=== PATIENT | male | born 1945 | race Caucasian/White ===

== ENCOUNTER 2020-06-22 16:44 | Emergency (ER) | payer MEDICARE, SELFPAY ==
[2020-06-22 16:59] VITALS: BP 149/80; PULSE 78; RESP 20; TEMP 36.2; O2SAT 98
--- NOTE | 2020-06-22 17:00 | ED.MALEGU ---
HPI - Male Genitourinary General Chief complaint: Urogenital-Male Stated complaint: cant get cath back in Time Seen by Provider: 06/22/20 17:00 Source: patient Mode of arrival: ambulatory Limitations: no limitations History of Present Illness HPI Narrative: 74-year-old man with a history of BPH comes in today complaining of the inability to cath himself and hematuria. Patient states that he tried to do his usual self-catheterization but he was unable to pass the catheter and he began to have gross blood from his meatus. Patient states that he has had no abdominal pain, fever, urgency, vomiting, diarrhea, testicular pain, cough or cold symptoms, chest pain or shortness of breath. He states he had a similar episode year ago which responded to a Wilson catheter which his physician took about a week later. MD Complaint: other (hematuria) Onset (ago): hour(s) (2-3) Duration: intermittent Location: penis Severity: mild Relieving factors: none Exacerbating factors: none Related Data Allergies Allergy/AdvReac Type Severity Reaction Status Date / Time No Known Allergies Allergy Verified 06/22/20 17:07 Review of Systems Constitutional: Constitutional: Denies chills, Denies fever(s) and Denies weakness Eyes: Eyes: Denies change in vision and Denies photophobia ENT: Denies epistaxis, Denies nasal congestion, Denies nasal discharge and Denies sore throat Cardiovascular: Cardiovascular: Denies chest pain, Denies leg edema and Denies lightheadedness Respiratory: Respiratory: Denies cough and Denies dyspnea Gastrointestinal: Gastrointestinal: Denies abdominal pain, Denies melena, Denies hematochezia, Denies diarrhea, Denies nausea and Denies vomiting Genitourinary: Genitourinary: Reports hematuria, Reports oliguria, Denies genital pain and Denies dysuria Musculoskeletal: Musculoskeletal: Denies back pain, Denies myalgias, Denies arthralgias and Denies joint swelling Integumentary/Breasts: Skin/Breast: Denies lesions, Denies erythema and Denies rash Neurologic: Denies vertigo, Denies dizziness, Denies syncope, Denies headache(s) and Denies focal weakness Hematologic/Lymphatic: Hematologic/Lymphatic: Denies easy bleeding and Denies easy bruising Allergic/Immunologic: Allergic/Immunologic: Denies urticaria and Denies throat swelling PMFSH Past Medical History Medical History (Updated 06/22/20 @ 18:28 by Romel Pa MD) BPH (benign prostatic hyperplasia) Surgical History Surgical History (Updated 06/22/20 @ 17:55 by Romel Pa MD) S/P hernia surgery Social History Social History (Updated 06/22/20 @ 17:55 by Romel Pa MD) Smoking status: Never smoker Alcohol intake: never Substance use: never Living arrangements: with family Gender identity (if verbalized by the patient): Male Exam Const: General: cooperative, healthy appearing, comfortable, no acute distress, alert, awake and Physically active Orientation/consciousness: patient oriented x3 Limitations: no limitations HENMT: Head: atraumatic Mouth: Yes Normal oral and palatal mucosa present Throat: posterior oropharynx normal Eyes: Sclera: sclerae normal Pupils: Equal, round and reactive pupils present EOM: EOMs intact bilaterally Resp: Effort & Inspection: normal respiratory effort and not labored Auscultation: clear to auscultation bilaterally, no rales, no rhonchi and no wheezes Cardio: Rate: regular rate Rhythm: regular rhythm Heart sounds: no murmurs GI: Inspection: normal to inspection and non-distended GI Palp: No abdominal tenderness, Yes Soft to palpation and No Guarding due to palpation present (GI) Auscultation: normal bowel sounds Skin: General skin exam: normal color and no rashes or lesions noted Neuro: General: tone normal and moves all extremities Cranial nerves: Yes CN's II-XII intact bilaterally Cognition (Neuro): normal cognition Speech: normal speech Gait exam (Neuro): Normal gait present Motor e
[2020-06-22 17:44] LABS: Appearance Urine Clear (Clear); Bilirubin Urine Negative (Negative); Color Urine Yellow (Yellow); Glucose Urine UA Negative (Negative); Ketones Urine Negative (Negative); Leukocyte Esterase Ur Negative (Negative); Nitrate Urine Negative (Negative); Protein Urine Negative (Negative); Specific Grav Ur >= 1.030 (1.010-1.020); Urobilinogen Urine 0.2 mg/dL (0.2-1.0)
[2020-06-22 17:52] LABS: Add Urine Microscopic? YES; Bacteria Urine Trace /hpf; Blood Urine Trace (Negative); Squamous Epithelial Cell Urine Rare /hpf (Few); WBC Urine 0-3 /hpf (0-3)
[2020-06-22 18:40] VITALS: BP 142/81; PULSE 78; RESP 20; O2SAT 100
== END 2020-06-22 18:44 | disposition home or self-care (01) ==
PROVIDERS: Emergency Provider Emergency Medicine; PCP Internal Medicine
DX: N40.1 Benign prostatic hyperplasia with lower urinary tract symptoms (principal); N13.8 Other obstructive and reflux uropathy; R31.9 Hematuria, unspecified
CPT/HCPCS: 81001; 87086; 99282; 99283

== ENCOUNTER 2021-08-11 11:29 | Outpatient (CLI) | payer MEDICARE, SELFPAY ==
[2021-08-11 11:49] LABS: Basophils Absolute Auto 0.08 K/mm3 (0.00-0.10); Basophils Percent Auto 0.5 % (0.0-1.0); Eosinophils Absolute Auto 0.19 K/mm3 (0.02-0.50); Eosinophils Percent Auto 1.3 % (1.0-6.0); Hematocrit 51.9 % (37.0-46.0); Immature Granulocyte Absolute 0.16 K/mm3 (0.00-0.00); Immature Granulocyte Percent A 1.1 % (0.0-0.0); Lymphocytes Absolute Auto 1.61 K/mm3 (1.10-4.50); Mean Corpuscular HGB Conc 32.8 g/dL (32.0-36.0); Mean Corpuscular Hemoglobin 32.1 pg (27.0-31.0); Mean Corpuscular Volume 97.9 fL (78.0-102.0); Mean Platelet Volume 9.7 fl (8.7-11.0); Monocytes Absolute Auto 0.88 K/mm3 (0.10-0.90); Neutrophils Absolute Auto 11.7 K/mm3 (1.7-7.2); Neutrophils Percent Auto 80.1 % (50.0-70.0); Platelet Count Result 385 K/mm3 (150-420); Red Cell Distribution Width 13.9 % (11.6-14.4); White Blood Count 14.6 K/mm3 (4.8-10.8)
[2021-08-11 11:50] LABS: Add Urine Microscopic? YES; Appearance Urine Clear (Clear); Bilirubin Urine Negative (Negative); Blood Urine 1+ (Negative); Color Urine Light Yellow (Yellow); Glucose Urine UA Negative (Negative); Ketones Urine 2+ (Negative); Leukocyte Esterase Ur 1+ (Negative); Nitrate Urine Negative (Negative); Protein Urine Negative (Negative); Specific Grav Ur 1.025 (1.010-1.020); Urobilinogen Urine 0.2 mg/dL (0.2-1.0); pH Urine 5.5 (5.0-8.0)
[2021-08-11 11:57] LABS: Bacteria Urine Trace /hpf; Mucus Urine Moderate /lpf; Squamous Epithelial Cell Urine Few /hpf (Few); WBC Urine 16-20 /hpf (0-3)
[2021-08-11 12:03] LABS: Alanine Aminotransferase 34 U/L (16-63); Albumin Level 3.1 g/dL (3.4-5.0); Alkaline Phosphatase 76 U/L (46-116); Anion Gap 10 mmol/L (8-16); Aspartate Amino Transferase 21 U/L (15-37); Bilirubin,Total 0.5 mg/dL (0.00-1.00); Blood Urea Nitrogen 23 mg/dL (7-18); Calcium 8.9 mg/dL (8.5-10.1); Carbon Dioxide 28 mmol/L (21-32); Chloride 102 mmol/L (98-108); Estimated Glomerular Filt Rate > 60; Glucose 91 mg/dL (70-99); Osmolality Calculated 293 mOsm/kg (285-295); Potassium 3.4 mmol/L (3.5-5.1); Sodium 140 mmol/L (136-145); Total Protein 7.6 g/dL (6.4-8.2)
== END 2021-08-11 11:30 | disposition home or self-care (01) ==
LOC: CHSLAB 11:31
PROVIDERS: PCP Internal Medicine; Visit Provider Internal Medicine
DX: R19.7 Diarrhea, unspecified (principal); N39.0 Urinary tract infection, site not specified
CPT/HCPCS: 36415; 80053; 81001; 85025; 87077; 87086; 87088; 87186; 87324

== ENCOUNTER 2021-11-22 09:31 | Outpatient (CLI) | payer MEDICARE, SELFPAY ==
[2021-11-22 13:43] LABS: Basophils Absolute Auto 0.03 K/mm3 (0.00-0.10); Basophils Percent Auto 0.2 % (0.0-1.0); Eosinophils Absolute Auto 0.05 K/mm3 (0.02-0.50); Eosinophils Percent Auto 0.3 % (1.0-6.0); Hemoglobin 15.9 g/dL (12.4-15.3); Immature Granulocyte Absolute 0.06 K/mm3 (0.00-0.00); Immature Granulocyte Percent A 0.4 % (0.0-0.0); Lymphocytes Absolute Auto 1.93 K/mm3 (1.10-4.50); Lymphocytes Percent Auto 12.9 % (18.0-42.0); Mean Corpuscular HGB Conc 32.4 g/dL (32.0-36.0); Mean Corpuscular Hemoglobin 32.4 pg (27.0-31.0); Mean Corpuscular Volume 99.8 fL (78.0-102.0); Mean Platelet Volume 9.9 fl (8.7-11.0); Monocytes Absolute Auto 0.88 K/mm3 (0.10-0.90); Monocytes Percent Auto 5.9 % (2.0-11.0); Neutrophils Percent Auto 80.3 % (50.0-70.0); Platelet Count Result 243 K/mm3 (150-420); Red Blood Count 4.91 M/mm3 (4.70-6.10); Red Cell Distribution Width 14.6 % (11.6-14.4); White Blood Count 14.9 K/mm3 (4.8-10.8)
[2021-11-22 14:23] LABS: Alanine Aminotransferase 17 U/L (16-63); Albumin Level 3.8 g/dL (3.4-5.0); Alkaline Phosphatase 68 U/L (46-116); Anion Gap 10 mmol/L (8-16); Aspartate Amino Transferase 14 U/L (15-37); Blood Urea Nitrogen 28 mg/dL (7-18); Calcium 9.3 mg/dL (8.5-10.1); Carbon Dioxide 25 mmol/L (21-32); Chloride 105 mmol/L (98-108); Estimated Glomerular Filt Rate 58; Glucose 130 mg/dL (70-99); Osmolality Calculated 297 mOsm/kg (285-295); Potassium 3.8 mmol/L (3.5-5.1); Sodium 140 mmol/L (136-145); Total Protein 7.5 g/dL (6.4-8.2)
== END 2021-11-22 09:32 | disposition home or self-care (01) ==
PROVIDERS: PCP Internal Medicine; Visit Provider Internal Medicine
DX: R19.7 Diarrhea, unspecified (principal)
CPT/HCPCS: 36415; 80053; 85025; 87324

== ENCOUNTER 2021-11-24 13:10 | Outpatient (CLI) | payer MEDICARE, SELFPAY ==
[2021-11-24 13:20] LABS: Basophils Absolute Auto 0.09 K/mm3 (0.00-0.10); Basophils Percent Auto 0.9 % (0.0-1.0); Eosinophils Absolute Auto 0.15 K/mm3 (0.02-0.50); Eosinophils Percent Auto 1.5 % (1.0-6.0); Hematocrit 46.4 % (37.0-46.0); Hemoglobin 15.2 g/dL (12.4-15.3); Immature Granulocyte Absolute 0.05 K/mm3 (0.00-0.00); Immature Granulocyte Percent A 0.5 % (0.0-0.0); Lymphocytes Absolute Auto 1.92 K/mm3 (1.10-4.50); Lymphocytes Percent Auto 18.9 % (18.0-42.0); Mean Corpuscular HGB Conc 32.8 g/dL (32.0-36.0); Mean Corpuscular Hemoglobin 32.5 pg (27.0-31.0); Mean Corpuscular Volume 99.4 fL (78.0-102.0); Monocytes Percent Auto 5.9 % (2.0-11.0); Neutrophils Absolute Auto 7.3 K/mm3 (1.7-7.2); Neutrophils Percent Auto 72.3 % (50.0-70.0); Platelet Count Result 254 K/mm3 (150-420); Red Blood Count 4.67 M/mm3 (4.70-6.10); Red Cell Distribution Width 14.6 % (11.6-14.4); White Blood Count 10.2 K/mm3 (4.8-10.8)
[2021-11-24 13:36] LABS: Alanine Aminotransferase 21 U/L (16-63); Albumin Level 3.2 g/dL (3.4-5.0); Alkaline Phosphatase 68 U/L (46-116); Anion Gap 9 mmol/L (8-16); Aspartate Amino Transferase 18 U/L (15-37); Bilirubin,Total 0.7 mg/dL (0.00-1.00); Blood Urea Nitrogen 21 mg/dL (7-18); Carbon Dioxide 27 mmol/L (21-32); Chloride 106 mmol/L (98-108); Estimated Glomerular Filt Rate > 60; Glucose 88 mg/dL (70-99); Osmolality Calculated 296 mOsm/kg (285-295); Potassium 4.1 mmol/L (3.5-5.1); Sodium 142 mmol/L (136-145); Total Protein 7.5 g/dL (6.4-8.2)
== END 2021-11-24 13:11 | disposition home or self-care (01) ==
LOC: CHSLAB 13:12
PROVIDERS: PCP Internal Medicine; Visit Provider Internal Medicine
DX: A04.72 Enterocolitis due to Clostridium difficile, not specified as recurrent (principal)
CPT/HCPCS: 36415; 80053; 85025

== ENCOUNTER 2021-12-06 10:37 | Outpatient (CLI) | payer MEDICARE, SELFPAY | END 2021-12-06 10:38 | disposition home or self-care (01) | LOC: CHSLAB 10:39 | PROVIDERS: PCP Internal Medicine; Visit Provider Internal Medicine | DX: A04.72 Enterocolitis due to Clostridium difficile, not specified as recurrent (principal) | CPT/HCPCS: 87324 ==

== ENCOUNTER 2021-12-18 10:10 | Outpatient (CLI) | payer MEDICARE, SELFPAY ==
--- NOTE | ~2021-12-18 | CT_ITS ---
EXAMINATION: CT abdomen pelvis w con INDICATION: Diarrhea TECHNIQUE: Computed tomographic images of the abdomen and pelvis were obtained after the administrati on of 100 cc of Omnipaque 350 intravenous contrast. The dose-length product (DLP) was 571.89 mGy-cm. Automated exposure control and iterative reconstruction technique were employed. COMPARISON: 01/12/2016 FINDINGS: Minimal dependent atelectasis is present in the lung bases. The heart size is normal. Calci fied coronary artery atherosclerosis is noted. The liver, spleen, pancreas, gallbladder, and adrenal glands are normal. There are multiple nonobstructing stones of the right kidney which measure up to 1 0 mm. Cysts of the kidneys measure up to 1.8 cm on the left. There are multiple stones in the urinary bladder. There is calcified atherosclerosis of the aorta and many of the other arteries. There is mi ld wall thickening of the rectum with surrounding edematous stranding of the perirectal fat. There al so appears to be mild wall thickening of the cecum. No pathologically enlarged abdominal or pelvic ly mph nodes are identified. There is no free intraperitoneal gas or evidence of bowel obstruction. Ther e is severe lumbar spondylosis. There is mild circumferential wall thickening of the urinary bladder. IMPRESSION: 1. Wall thickening of the rectum and cecum, likely colitis. 2. Multiple stones in the urinary bladder as well as the right kidney. 3. Mild wall thickening of the urinary bladder which could reflect cystitis versus chronic outlet obs truction. Reviewed, dictated and finalized at location B. IMPRESSION: 1. Wall thickening of the rectum and cecum, likely colitis. 2. Multiple stones in the urinary bladder as well as the right kidney. 3. Mild wall thickening of the urinary bladder which could reflect cystitis alexa maryann chronic outlet obstruction.
[2021-12-18 10:25] LABS: Basophils Absolute Auto 0.12 K/mm3 (0.00-0.10); Basophils Percent Auto 1.1 % (0.0-1.0); Eosinophils Absolute Auto 0.16 K/mm3 (0.02-0.50); Eosinophils Percent Auto 1.4 % (1.0-6.0); Hematocrit 52.1 % (37.0-46.0); Hemoglobin 16.9 g/dL (12.4-15.3); Immature Granulocyte Absolute 0.04 K/mm3 (0.00-0.00); Immature Granulocyte Percent A 0.4 % (0.0-0.0); Lymphocytes Absolute Auto 1.83 K/mm3 (1.10-4.50); Lymphocytes Percent Auto 16.1 % (18.0-42.0); Mean Corpuscular HGB Conc 32.4 g/dL (32.0-36.0); Mean Corpuscular Hemoglobin 32.7 pg (27.0-31.0); Mean Corpuscular Volume 100.8 fL (78.0-102.0); Mean Platelet Volume 10.1 fl (8.7-11.0); Monocytes Absolute Auto 0.75 K/mm3 (0.10-0.90); Monocytes Percent Auto 6.6 % (2.0-11.0); Neutrophils Absolute Auto 8.5 K/mm3 (1.7-7.2); Neutrophils Percent Auto 74.4 % (50.0-70.0); Platelet Count Result 243 K/mm3 (150-420); Red Blood Count 5.17 M/mm3 (4.70-6.10); Red Cell Distribution Width 14.6 % (11.6-14.4); White Blood Count 11.4 K/mm3 (4.8-10.8)
[2021-12-18 10:46] LABS: Alanine Aminotransferase 16 U/L (16-63); Albumin Level 3.8 g/dL (3.4-5.0); Alkaline Phosphatase 78 U/L (46-116); Anion Gap 6 mmol/L (8-16); Aspartate Amino Transferase 14 U/L (15-37); Bilirubin,Total 0.8 mg/dL (0.00-1.00); Blood Urea Nitrogen 16 mg/dL (7-18); Calcium 9.3 mg/dL (8.5-10.1); Carbon Dioxide 28 mmol/L (21-32); Chloride 105 mmol/L (98-108); Estimated Glomerular Filt Rate > 60; Glucose 87 mg/dL (70-99); Osmolality Calculated 288 mOsm/kg (285-295); Potassium 3.8 mmol/L (3.5-5.1); Sodium 139 mmol/L (136-145); Total Protein 7.8 g/dL (6.4-8.2)
[2021-12-18 12:14] LABS: Add Urine Microscopic? YES; Appearance Urine Clear (Clear); Bilirubin Urine Negative (Negative); Blood Urine 1+ (Negative); Color Urine Yellow (Yellow); Glucose Urine UA Negative (Negative); Ketones Urine Negative (Negative); Leukocyte Esterase Ur 2+ LEU/UL (Negative); Nitrate Urine Positive (Negative); Protein Urine 1+ (Negative); Specific Grav Ur >= 1.030 (1.010-1.020); Urobilinogen Urine 0.2 mg/dL (0.2-1.0); pH Urine 5.5 (5.0-8.0)
[2021-12-18 12:21] LABS: Squamous Epithelial Cell Urine Occasional /hpf (Few); WBC Urine 31-50 /hpf (0-3)
[2021-12-18 12:22] LABS: Bacteria Urine 2+ /hpf
== END 2021-12-18 10:11 | disposition home or self-care (01) ==
PROVIDERS: PCP Internal Medicine; Visit Provider Internal Medicine
DX: R19.7 Diarrhea, unspecified (principal); R82.90 Unspecified abnormal findings in urine
CPT/HCPCS: 36415; 74177; 80053; 81001; 85025; 87077; 87086; 87088; 87186; 87324; Q9967

== ENCOUNTER 2021-12-19 12:34 | Outpatient (CLI) | payer MEDICARE, SELFPAY | END 2021-12-19 12:35 | disposition home or self-care (01) | LOC: CHSLAB 12:35 | PROVIDERS: PCP Internal Medicine; Visit Provider Internal Medicine | DX: K52.9 Noninfective gastroenteritis and colitis, unspecified (principal) | CPT/HCPCS: 87324 ==

== ENCOUNTER 2021-12-27 09:50 | Outpatient (CLI) | payer MEDICARE, SELFPAY ==
[2021-12-27 10:01] LABS: Basophils Absolute Auto 0.08 K/mm3 (0.00-0.10); Basophils Percent Auto 1.2 % (0.0-1.0); Eosinophils Absolute Auto 0.26 K/mm3 (0.02-0.50); Eosinophils Percent Auto 3.8 % (1.0-6.0); Hematocrit 48.4 % (37.0-46.0); Hemoglobin 15.9 g/dL (12.4-15.3); Immature Granulocyte Absolute 0.03 K/mm3 (0.00-0.00); Immature Granulocyte Percent A 0.4 % (0.0-0.0); Lymphocytes Percent Auto 26.2 % (18.0-42.0); Mean Corpuscular HGB Conc 32.9 g/dL (32.0-36.0); Mean Corpuscular Hemoglobin 32.4 pg (27.0-31.0); Mean Corpuscular Volume 98.6 fL (78.0-102.0); Mean Platelet Volume 9.4 fl (8.7-11.0); Monocytes Absolute Auto 0.48 K/mm3 (0.10-0.90); Neutrophils Absolute Auto 4.2 K/mm3 (1.7-7.2); Neutrophils Percent Auto 61.4 % (50.0-70.0); Platelet Count Result 282 K/mm3 (150-420); Red Blood Count 4.91 M/mm3 (4.70-6.10); Red Cell Distribution Width 14.6 % (11.6-14.4); White Blood Count 6.9 K/mm3 (4.8-10.8)
[2021-12-27 10:03] LABS: Add Urine Microscopic? YES; Appearance Urine Clear (Clear); Bilirubin Urine Negative (Negative); Blood Urine Negative (Negative); Color Urine Light Yellow (Yellow); Glucose Urine UA Negative (Negative); Ketones Urine Negative (Negative); Leukocyte Esterase Ur 1+ (Negative); Nitrate Urine Negative (Negative); Protein Urine Negative (Negative); Urobilinogen Urine 0.2 mg/dL (0.2-1.0); pH Urine 6.5 (5.0-8.0)
[2021-12-27 10:09] LABS: Bacteria Urine 1+ /hpf; RBC Urine None seen /hpf (0-2); Renal Epithelial Cells Urine Few /hpf; Squamous Epithelial Cell Urine Few /hpf (Few)
[2021-12-27 10:15] LABS: Alanine Aminotransferase 20 U/L (16-63); Albumin Level 3.6 g/dL (3.4-5.0); Alkaline Phosphatase 63 U/L (46-116); Anion Gap 6 mmol/L (8-16); Aspartate Amino Transferase 19 U/L (15-37); Bilirubin,Total 0.3 mg/dL (0.00-1.00); Blood Urea Nitrogen 18 mg/dL (7-18); Calcium 9.1 mg/dL (8.5-10.1); Carbon Dioxide 28 mmol/L (21-32); Chloride 102 mmol/L (98-108); Estimated Glomerular Filt Rate 54; Glucose 77 mg/dL (70-99); Osmolality Calculated 282 mOsm/kg (285-295); Potassium 4.4 mmol/L (3.5-5.1); Sodium 136 mmol/L (136-145); Total Protein 7.4 g/dL (6.4-8.2)
== END 2021-12-27 09:51 | disposition home or self-care (01) ==
LOC: CHSLAB 09:52
PROVIDERS: PCP Internal Medicine; Visit Provider Internal Medicine
DX: A04.72 Enterocolitis due to Clostridium difficile, not specified as recurrent (principal); N39.0 Urinary tract infection, site not specified
CPT/HCPCS: 36415; 80053; 81001; 85025; 87086; 87324

== ENCOUNTER 2022-01-15 10:04 | Outpatient (CLI) | payer MEDICARE, SELFPAY ==
[2022-01-15 10:17] LABS: Basophils Absolute Auto 0.06 K/mm3 (0.00-0.10); Basophils Percent Auto 0.5 % (0.0-1.0); Eosinophils Absolute Auto 0.15 K/mm3 (0.02-0.50); Eosinophils Percent Auto 1.3 % (1.0-6.0); Hematocrit 50.3 % (37.0-46.0); Hemoglobin 16.7 g/dL (12.4-15.3); Immature Granulocyte Absolute 0.03 K/mm3 (0.00-0.00); Immature Granulocyte Percent A 0.3 % (0.0-0.0); Lymphocytes Absolute Auto 1.78 K/mm3 (1.10-4.50); Lymphocytes Percent Auto 15.9 % (18.0-42.0); Mean Corpuscular HGB Conc 33.2 g/dL (32.0-36.0); Mean Corpuscular Hemoglobin 32.4 pg (27.0-31.0); Mean Corpuscular Volume 97.7 fL (78.0-102.0); Mean Platelet Volume 10.1 fl (8.7-11.0); Monocytes Absolute Auto 0.94 K/mm3 (0.10-0.90); Monocytes Percent Auto 8.4 % (2.0-11.0); Neutrophils Absolute Auto 8.3 K/mm3 (1.7-7.2); Neutrophils Percent Auto 73.6 % (50.0-70.0); Platelet Count Result 235 K/mm3 (150-420); Red Blood Count 5.15 M/mm3 (4.70-6.10); Red Cell Distribution Width 14.7 % (11.6-14.4); White Blood Count 11.2 K/mm3 (4.8-10.8)
[2022-01-15 10:38] LABS: Alanine Aminotransferase 14 U/L (16-63); Albumin Level 3.4 g/dL (3.4-5.0); Alkaline Phosphatase 74 U/L (46-116); Anion Gap 6 mmol/L (8-16); Aspartate Amino Transferase 17 U/L (15-37); Bilirubin,Total 0.5 mg/dL (0.00-1.00); Blood Urea Nitrogen 18 mg/dL (7-18); Calcium 8.6 mg/dL (8.5-10.1); Carbon Dioxide 27 mmol/L (21-32); Chloride 104 mmol/L (98-108); Estimated Glomerular Filt Rate > 60; Glucose 130 mg/dL (70-99); Osmolality Calculated 287 mOsm/kg (285-295); Potassium 3.5 mmol/L (3.5-5.1); Sodium 137 mmol/L (136-145); Total Protein 7.2 g/dL (6.4-8.2)
== END 2022-01-15 10:05 | disposition home or self-care (01) ==
LOC: CHSLAB 10:05
PROVIDERS: PCP Internal Medicine; Visit Provider Internal Medicine
DX: R19.7 Diarrhea, unspecified (principal)
CPT/HCPCS: 36415; 80053; 85025; 87324

== ENCOUNTER 2022-01-23 09:56 | Outpatient (CLI) | payer MEDICARE, SELFPAY ==
[2022-01-23 10:08] LABS: Basophils Absolute Auto 0.08 K/mm3 (0.00-0.10); Basophils Percent Auto 0.9 % (0.0-1.0); Eosinophils Absolute Auto 0.07 K/mm3 (0.02-0.50); Eosinophils Percent Auto 0.7 % (1.0-6.0); Hematocrit 48.1 % (37.0-46.0); Hemoglobin 15.6 g/dL (12.4-15.3); Immature Granulocyte Absolute 0.07 K/mm3 (0.00-0.00); Immature Granulocyte Percent A 0.7 % (0.0-0.0); Lymphocytes Absolute Auto 1.64 K/mm3 (1.10-4.50); Lymphocytes Percent Auto 17.5 % (18.0-42.0); Mean Corpuscular HGB Conc 32.4 g/dL (32.0-36.0); Mean Corpuscular Hemoglobin 31.8 pg (27.0-31.0); Mean Platelet Volume 9.5 fl (8.7-11.0); Monocytes Absolute Auto 0.66 K/mm3 (0.10-0.90); Neutrophils Absolute Auto 6.9 K/mm3 (1.7-7.2); Neutrophils Percent Auto 73.2 % (50.0-70.0); Platelet Count Result 280 K/mm3 (150-420); Red Blood Count 4.91 M/mm3 (4.70-6.10); Red Cell Distribution Width 14.8 % (11.6-14.4); White Blood Count 9.4 K/mm3 (4.8-10.8)
[2022-01-23 10:23] LABS: Chloride 104 mmol/L (98-108); Potassium 3.8 mmol/L (3.5-5.1); Sodium 139 mmol/L (136-145)
[2022-01-23 10:35] LABS: Alanine Aminotransferase 19 U/L (16-63); Albumin Level 3.2 g/dL (3.4-5.0); Alkaline Phosphatase 68 U/L (46-116); Anion Gap 7 mmol/L (8-16); Aspartate Amino Transferase 14 U/L (15-37); Bilirubin,Total 0.4 mg/dL (0.00-1.00); Blood Urea Nitrogen 13 mg/dL (7-18); Carbon Dioxide 28 mmol/L (21-32); Estimated Glomerular Filt Rate > 60; Glucose 111 mg/dL (70-99); Osmolality Calculated 289 mOsm/kg (285-295); Total Protein 7.3 g/dL (6.4-8.2)
== END 2022-01-23 09:57 | disposition home or self-care (01) ==
LOC: CHSLAB 09:58
PROVIDERS: PCP Internal Medicine; Visit Provider Internal Medicine
DX: R19.7 Diarrhea, unspecified (principal)
CPT/HCPCS: 36415; 80053; 85025; 87324

== ENCOUNTER 2022-03-06 11:22 | Outpatient (CLI) | payer MEDICARE, SELFPAY ==
[2022-03-06 11:44] LABS: Basophils Absolute Auto 0.09 K/mm3 (0.00-0.10); Basophils Percent Auto 0.9 % (0.0-1.0); Eosinophils Absolute Auto 0.09 K/mm3 (0.02-0.50); Eosinophils Percent Auto 0.9 % (1.0-6.0); Hematocrit 50.5 % (37.0-46.0); Hemoglobin 16.6 g/dL (12.4-15.3); Immature Granulocyte Absolute 0.06 K/mm3 (0.00-0.00); Immature Granulocyte Percent A 0.6 % (0.0-0.0); Lymphocytes Percent Auto 14.6 % (18.0-42.0); Mean Corpuscular HGB Conc 32.9 g/dL (32.0-36.0); Mean Corpuscular Hemoglobin 32.4 pg (27.0-31.0); Mean Corpuscular Volume 98.6 fL (78.0-102.0); Mean Platelet Volume 9.9 fl (8.7-11.0); Monocytes Absolute Auto 0.51 K/mm3 (0.10-0.90); Platelet Count Result 271 K/mm3 (150-420); Red Blood Count 5.12 M/mm3 (4.70-6.10); Red Cell Distribution Width 14.7 % (11.6-14.4); White Blood Count 10.3 K/mm3 (4.8-10.8)
[2022-03-06 12:09] LABS: Alanine Aminotransferase 23 U/L (16-63); Albumin Level 3.7 g/dL (3.4-5.0); Alkaline Phosphatase 80 U/L (46-116); Anion Gap 8 mmol/L (8-16); Aspartate Amino Transferase 18 U/L (15-37); Bilirubin,Total 0.6 mg/dL (0.00-1.00); Blood Urea Nitrogen 21 mg/dL (7-18); Carbon Dioxide 27 mmol/L (21-32); Chloride 105 mmol/L (98-108); Estimated Glomerular Filt Rate > 60; Glucose 93 mg/dL (70-99); Osmolality Calculated 293 mOsm/kg (285-295); Potassium 4.3 mmol/L (3.5-5.1); Sodium 140 mmol/L (136-145); Total Protein 8.4 g/dL (6.4-8.2)
== END 2022-03-06 11:23 | disposition home or self-care (01) ==
LOC: CHSLAB 11:25
PROVIDERS: PCP Internal Medicine; Visit Provider Internal Medicine
DX: A04.72 Enterocolitis due to Clostridium difficile, not specified as recurrent (principal)
CPT/HCPCS: 36415; 80053; 85025; 87324

== ENCOUNTER 2022-03-07 11:05 | Outpatient (CLI) | payer MEDICARE, SELFPAY | END 2022-03-07 11:06 | disposition home or self-care (01) | LOC: CHSLAB 11:07 | PROVIDERS: PCP Internal Medicine; Visit Provider Internal Medicine | DX: R19.7 Diarrhea, unspecified (principal) | CPT/HCPCS: 87324 ==

== ENCOUNTER 2022-03-09 10:21 | Outpatient (CLI) | payer MEDICARE, SELFPAY | END 2022-03-09 10:22 | disposition home or self-care (01) | LOC: CHSLAB 10:23 | PROVIDERS: PCP Internal Medicine; Visit Provider Internal Medicine | DX: R19.7 Diarrhea, unspecified (principal) | CPT/HCPCS: 87324 ==

== ENCOUNTER 2022-09-26 16:53 | Outpatient (CLI) | payer MEDICARE, SELFPAY ==
[2022-09-26 17:34] LABS: Appearance Urine Clear (Clear); Bilirubin Urine Negative (Negative); Blood Urine 3+ (Negative); Color Urine Light Yellow (Yellow); Glucose Urine UA Negative (Negative); Ketones Urine Trace (Negative); Leukocyte Esterase Ur Trace (Negative); Nitrate Urine Positive (Negative); Protein Urine 1+ (Negative); Urobilinogen Urine 0.2 mg/dL (0.2-1.0)
[2022-09-26 17:40] LABS: Add Urine Microscopic? YES; Bacteria Urine 3+ /hpf; Squamous Epithelial Cell Urine Rare /hpf (Few)
== END 2022-09-26 16:54 | disposition home or self-care (01) ==
LOC: CHSLAB 16:55
PROVIDERS: PCP Internal Medicine; Visit Provider Internal Medicine
DX: N39.0 Urinary tract infection, site not specified (principal)
CPT/HCPCS: 81001; 87077; 87086; 87088; 87186

== ENCOUNTER 2023-06-21 13:39 | Outpatient (CLI) | payer MEDICARE, SELFPAY ==
--- NOTE | ~2023-06-21 | US_ITS ---
EXAMINATION:US venous doppler LE LT INDICATION:Leg edema TECHNIQUE: Multiple grayscale, color flow and Doppler images of the left lower extremity deep venous systems were obtained and reviewed. COMPARISON:No prior studies for comparison. FINDINGS: The common femoral, superficial femoral and popliteal veins demonstrate normal respiratory variation, augmentation and compressibility. Color flow is also seen within the posterior tibial, pe roneal, greater saphenous and profunda veins. IMPRESSION: 1: No lower extremity deep venous thrombosis. Reviewed, dictated and finalized at location A. RTING COORDINATOR
--- NOTE | ~2023-06-21 | US_ITS ---
EXAMINATION: US arterial ankle brachial ind DATE: 06/21/2023 14:52 INDICATION: Peripheral arterial disease. TECHNIQUE: Segmental pressures and plethysmographic and Doppler waveforms of the brachial and lower e xtremity arteries were obtained. COMPARISON: None. FINDINGS: Right and left brachial artery pressures of 108 mm Hg and 105 mm Hg, respectively, are concordant (no rmal difference <= 30 mmHg). The right ankle-brachial index (JAMES) is 1.35 (normal >= 0.9-1.0). The right great toe-brachial index (TBI) is 0.83 (normal >= 0.65). Arterial Doppler waveforms are biphasic at the ankle. The left JAMES is 0.70. The left TBI is 0.44. Arterial Doppler waveforms are monophasic at the ankle. IMPRESSION: 1. Moderately decreased left JAMES, consistent with left-sided arterial occlusive disease. Reviewed, dictated and finalized at location E. RIOR MECHANIC
== END 2023-06-21 13:40 | disposition home or self-care (01) ==
LOC: CHSIMG 13:40
PROVIDERS: PCP Internal Medicine; Visit Provider Internal Medicine
DX: I73.9 Peripheral vascular disease, unspecified (principal); M79.89 Other specified soft tissue disorders
CPT/HCPCS: 93922; 93971

== ENCOUNTER 2023-07-01 08:03 | Outpatient (CLI) | payer MEDICARE, SELFPAY ==
--- NOTE | ~2023-07-01 | CT_ITS ---
EXAMINATION: CTA abd aorta runoff DATE: 07/01/2023 09:21 INDICATION: Peripheral arterial occlusive disease with atherosclerosis of [place] arteries. Nonhealing wound at the left foot. TECHNIQUE: Computed tomographic angiography (CTA) of the abdominal, pelvis, and both lower extremitie s was performed with 150 mL Omnipaque 350 intravenous contrast. Automated exposure control and iterat glenny reconstruction technique were employed. The dose-length product was 1052.94 mGy-cm. COMPARISON: 12/18/2021 FINDINGS: ABDOMINAL AORTA AND ITS BRANCHES: There is calcified atherosclerosis of the normal caliber aorta and along the arteries arising from th e aorta arteries without hemodynamically significant stenosis or dissection. PELVIC VASCULATURE: Scattered atherosclerotic plaque along the normal caliber bilateral common, external and internal kendal ac arteries also without hemodynamically significant stenosis or dissection. RIGHT LOWER EXTREMITY: There is scattered atherosclerotic plaque without hemodynamic significant stenosis along the right co mmon femoral, superficial femoral, popliteal artery and tibioperoneal trunk. Three-vessel runoff belo w the ankle. LEFT LOWER EXTREMITY: Small amount of nonhemodynamically significant atherosclerotic plaque at the left common femoral joshua ry. Thrombosis with complete occlusion of the left superficial femoral artery beginning at its origin extending 28 cm distally to 20 cm above level of the left knee joint line where there is reconstitut ion via collaterals. There is additional scattered atherosclerotic plaque without hemodynamically sig nificant stenosis in the left popliteal artery and at the bifurcation of the tibioperoneal trunk. Thr ee-vessel runoff to below the left ankle. ADDITIONAL FINDINGS: Mild emphysema at the bilateral lung bases. Eventration of the posterior right hemidiaphragm. Heart s ize is normal. No pericardial or pleural effusion. Small sliding-type hiatal hernia. A few small bila teral renal cysts the largest measuring up to 1.8 cm at the upper pole the left kidney. There are 7 s tones at upper pole calyces of the right kidney the largest measuring up to 7 mm in maximal diameter. Liver, gallbladder, spleen and bilateral adrenal glands are normal. There are few scattered dystroph ic calcifications in the spleen consistent with prior pancreatitis. There is prominent sigmoid divert iculosis without adjacent inflammatory change to suggest diverticulitis. No bowel obstruction. Postop erative change of bilateral inguinal hernia repairs. There are small fat-containing umbilical hernia. Prostatomegaly which impresses upon the base of the bladder. There are several stones within the lisa dder. There is diffuse mild bladder wall thickening and mild stranding in the immediately adjacent fa t suggesting possibility of cystitis. No free intraperitoneal gas or fluid. No pathologically enlarge d abdominal or pelvic lymphadenopathy. Severe lumbar spondylosis. IMPRESSION: 1. 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 2. Otherwise mild scattered atherosclerotic plaque seen from the abdominal aorta through the bilatera l tibioperoneal trunks without additional hemodynamically significant stenosis, aneurysm or dissectio n. 3. Nonobstructing right nephrolithiasis. 4. A few stones in the bladder which demonstrates mild wall thickening and mild surrounding stranding which could be seen with cystitis. Correlate with urinalysis. 5. Small sliding-type hiatal hernia. 6. Prostatomegaly. Reviewed, dictated and finalized at location A. P CONTRACT ANALYST IMPRESSION: 1. 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 2. Otherwise mild scattered atheros
[2023-07-01 08:38] LABS: Estimated Glomerular Filt Rate 48
== END 2023-07-01 08:04 | disposition home or self-care (01) ==
LOC: CHSIMG 08:04
PROVIDERS: PCP Internal Medicine; Visit Provider Internal Medicine
DX: I73.9 Peripheral vascular disease, unspecified (principal); I77.1 Stricture of artery; N20.0 Calculus of kidney; N21.0 Calculus in bladder; K44.9 Diaphragmatic hernia without obstruction or gangrene; N40.0 Benign prostatic hyperplasia without lower urinary tract symptoms
CPT/HCPCS: 75635; Q9967

== ENCOUNTER 2024-02-05 10:17 | Outpatient (CLI) | payer MEDICARE, SELFPAY ==
--- NOTE | ~2024-02-05 | US_ITS ---
EXAMINATION: US carotid duplex BI DATE: 02/05/2024 10:46 INDICATION: Left carotid bruit. TECHNIQUE: Grayscale, color Doppler, and pulsed Doppler images of the cervical carotid arteries were obtained. The degree of vessel stenosis is placed in one of the following categories: normal, <50%, 5 0-69%, >=70% but less than near-occlusion, near-occlusion, or total occlusion. Note that percent sten osis relative to normal distal artery lumen diameter is indirectly measured from velocity measurement s as described by Sukhjinder, et al. Radiology 2003; [id number]:[id number]. COMPARISON: None. FINDINGS: RIGHT: The right common carotid artery (CCA) peak systolic velocity (PSV) is 86 cm/s. The right internal car otid artery (ICA) PSV is 53 cm/s. The right ICA end-diastolic velocity (EDV) is 19 cm/s. The right IC A/CCA PSV ratio is 0.6. Grayscale and color Doppler images yield an estimate of <50% diameter reducti on from plaque in the ICA. There is antegrade flow in the right vertebral artery. LEFT: The left CCA PSV is 74 cm/s. The left ICA PSV is 81 cm/s. The left ICA EDV is 19 cm/s. The left ICA/C CA PSV ratio is 1.1. Grayscale and color Doppler images yield an estimate of <50% diameter reduction from plaque in the ICA. There is antegrade flow in the left vertebral artery. IMPRESSION: 1. <50% stenosis in the right internal carotid artery. 2. <50% stenosis in the left internal carotid artery. Reviewed, dictated and finalized at location A.
== END 2024-02-05 10:18 | disposition home or self-care (01) ==
LOC: CHSIMG 10:18
PROVIDERS: PCP Internal Medicine; Visit Provider Internal Medicine
DX: I65.23 Occlusion and stenosis of bilateral carotid arteries (principal); R09.89 Other specified symptoms and signs involving the circulatory and respiratory systems
CPT/HCPCS: 93880

== ENCOUNTER 2024-05-19 10:17 | Outpatient (CLI) | payer MEDICARE, SELFPAY ==
--- NOTE | ~2024-05-19 | US_ITS ---
EXAMINATION: US venous doppler [facility] DATE: 05/19/2024 10:49 INDICATION: Left lower limb swelling. TECHNIQUE: Grayscale ultrasound images without and with compression and Doppler ultrasound images of the left lower extremity veins were obtained. COMPARISON: None. FINDINGS: The visualized portions of left common femoral vein, profunda (deep) femoral vein, femoral vein, popl iteal vein, peroneal veins, posterior tibial veins, and greater saphenous vein outflow are patent. Th ere is reflux in left common femoral vein measuring 1.2 seconds. There is reflux in left femoral vein measuring 1.6 seconds. There is reflux the left popliteal vein measuring 2.7 seconds. IMPRESSION: 1. No deep venous thrombosis. 2. Reflux in left common femoral vein, femoral vein, and popliteal vein. Reviewed, dictated and finalized at location B. OPERATOR
== END 2024-05-19 10:18 | disposition home or self-care (01) ==
PROVIDERS: PCP Internal Medicine; Visit Provider Internal Medicine
DX: M79.89 Other specified soft tissue disorders (principal); I87.2 Venous insufficiency (chronic) (peripheral)
CPT/HCPCS: 93971

== ENCOUNTER 2024-11-30 15:21 | Outpatient (CLI) | payer MEDICARE, SELFPAY ==
--- NOTE | ~2024-11-30 | CT_ITS ---
CLINICAL INDICATION: Gross hematuria COMPARISON: 07/01/2023. TECHNIQUE: Multiple contiguous axial images of the abdomen and pelvis were performed both prior to an d following the administration of with 100 mL Omnipaque-350 intravenous contrast The dose-length product (DLP) was 1362.87 mGy-cm. Automated exposure control and iterative reconstruction technique were employed. FINDINGS/OBSERVATIONS: Visualized lower thorax: The bilateral lung bases are clear. The heart is of normal size, without pericardial effusion. A moderate hiatal hernia is present. Liver: The liver demonstrates homogeneous enhancement and is not enlarged . Gallbladder and biliary system: The gallbladder is only minimally distended, and otherwise unremarkable. Pancreas: The pancreas enhances homogeneously without ductal dilatation. Spleen: The spleen enhances homogeneously and is not enlarged . Kidneys: Multiple stones are identified within the right kidney, concentrated within primarily within the upper pole with the largest stone measuring 9 mm, unchanged from 07/01/2023. No stones are identified within the left kidney. Well-circumscribed rounded foci of fluid attenuation are identified within the left kidney, represent ing (likely) simple cysts, unchanged from 07/01/2023. The remainder of the bilateral kidneys otherwise enhance symmetrically without hydronephrosis or apoorva tional renal calculi. The bilateral ureters are without a filling defect along their course with the exception of the final 1 to 2 cm, which are unopacified. The bladder is also unopacified in its entirety. Adrenal glands: Unremarkable. Gastrointestinal tract: Colonic diverticulosis without surrounding inflammatory change. Appendix: The appendix is not definitively visualized. However, no pericecal inflammatory change is identified suggest the presence of acute appendicitis. Vasculature: Densely calcified atherosclerotic disease. Lymph nodes: No pathologically enlarged or morphologically suspicious lymph nodes within the retroperitoneum or at the root of the mesentery. Pelvic structures: The bladder is only minimally distended, and contains multiple stones concentrated primarily within t he base of the bladder and at the left ureterovesicular junction. The location of these stones is unc hanged from 07/01/2023 but they are significantly increased in number from previous examination. The prostate gland is enlarged and demonstrates multiple bulky calcifications. Body wall and musculoskeletal: Small fat and likely omental containing umbilical hernia. Age advanced degenerative disease within the lumbosacral spine. IMPRESSION: Right-sided nonobstructing renal calculi. Innumerable bladder stones, increased in number from previous examination dated 07/01/2023. No filling defects within the bilateral ureters without adequate visualization for the last 1 to 2 cm bilaterally. Reviewed, dictated and finalized at location A.
[2024-11-30 16:15] LABS: Add Urine Microscopic? YES; Glucose Urine UA Negative (Negative); Leukocyte Esterase Ur 2+ (Negative); Nitrate Urine Positive (Negative); Specific Grav Ur 1.025 (1.010-1.020)
[2024-11-30 16:19] LABS: Estimated Glomerular Filt Rate > 60
[2024-11-30 16:55] LABS: Appearance Urine Cloudy (Clear)
== END 2024-11-30 15:22 | disposition home or self-care (01) ==
LOC: CHSLAB 15:24
PROVIDERS: PCP Internal Medicine; Visit Provider Internal Medicine
DX: R31.0 Gross hematuria (principal)
CPT/HCPCS: 74178; 81001; 87086; 87186; Q9967